=== PATIENT | male | born 1950 | race Caucasian/White ===

== ENCOUNTER 2017-10-23 14:40 | Inpatient (IN) | payer OTHER ==
[~2017-10-23] VITALS: Ht 170.2 cm; Wt 63.5 kg
--- NOTE | ~2017-10-23 | EKG ---
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 : 1950 Requested By: Mark Montoya Order Number: [id number] MD: Marek Holguin Measurements Intervals [place] Rate: 112 P: NE: QRS: 92 QRSD: 96 T: 267 QT: 322 QTc: 440 Interpretive Statements Atrial fibrillation Ventricular premature complex Right axis deviation Consider left ventricular hypertrophy Nonspecific T abnormalities, lateral leads No previous ECG available for comparison Electronically Signed On 10-23-2017 19:27:55 [employer]PER[employer]OR [employer]MENT by Marek Holguin [email or web address] <ELECTRONICALLY SIGNED> By: Marek Holguin MD 10/23/17 1927 D: [id number] 17 Marek Holguin MD /NORY
[2017-10-23 14:41] VITALS: BP 153/78
[2017-10-23] MEDS ORDERED: RISPERDAL0.5 MG PO (14:45)
[2017-10-23] MEDS ORDERED: ELIQUIS5 M1 PO (14:45)
[2017-10-23] MEDS ORDERED: POTASSIUM20 PO (14:45)
[2017-10-23] MEDS ORDERED: ASPIR 8181 MG PO (14:45)
[2017-10-23] MEDS ORDERED: FOLIC ACID1 MG PO (14:46)
[2017-10-23] MEDS ORDERED: LIPITOR40 MG PO (14:46)
[2017-10-23] MEDS ORDERED: PRINIVIL20 MG PO (14:46)
[2017-10-23] MEDS ORDERED: FUROSEMIDE 40 M40 M1 PO (14:46)
[2017-10-23 16:16] LABS: ABSOLUTE NEUTROPHILS 6.5 thou/uL (1.4-8.2); BASOPHILS 0.7 % (0.0-2.0); EOSINOPHILS 0.3 % (0.0-3.0); HEMATOCRIT 45.8 % (42.0-52.0); HEMOGLOBIN 15.1 gm/dL (14.0-18.0); LYMPHOCYTES 7.6 % (24.0-44.0); MCH 29.1 pg (26.0-34.0); MCHC 32.9 g/dL (28.0-37.0); MCV 88.5 fL (80.0-100.0); MONOCYTES 8.7 % (1.0-8.0); PLATELET COUNT 127 thou/uL (150-400); POLYS 82.7 % (36.0-66.0); RBC 5.17 mil/uL (4.50-6.00); RDW 14.4 % (10.5-14.5); WBC 7.9 thou/uL (4.0-11.0)
[2017-10-23 16:27] LABS: CREATININE 1.5 mg/dL (0.7-1.3); POTASSIUM 4.1 mmol/L (3.5-5.1); TROPONIN-I 0.05 ng/mL (<0.06)
[2017-10-23 17:35] LABS: URINE BILIRUBIN NEGATIVE (Negative); URINE BLOOD NEGATIVE (Negative); URINE CLARITY CLEAR; URINE COLOR YELLOW; URINE GLUCOSE-RANDOM* NEGATIVE (Negative); URINE KETONES NEGATIVE (Negative); URINE LEUKOCYTES-REFLEX NEGATIVE (Negative); URINE NITRITE-REFLEX NEGATIVE (Negative); URINE PROTEIN (DIPSTICK) NEGATIVE (Negative); URINE SPECIFIC GRAVITY <= 1.005 (1.005-1.035); URINE UROBILINOGEN 0.2 E.U./dl (0.2-1.0)
[2017-10-23 17:40] VITALS: BP 122/89
[2017-10-23 21:25] VITALS: BP 161/81
[2017-10-24 04:00] VITALS: BP 141/85
[2017-10-24 06:24] LABS: ALBUMIN 3.3 g/dL (3.4-5.0); CALCIUM 10.6 mg/dL (8.5-10.1); CREATININE 1.5 mg/dL (0.7-1.3); PHOSPHORUS 2.4 mg/dL (2.5-4.9); POTASSIUM 3.9 mmol/L (3.5-5.1); TROPONIN-I 0.05 ng/mL (<0.06)
[2017-10-24 07:54] VITALS: BP 143/92
[2017-10-24 16:36] VITALS: BP 93/62
[2017-10-24 20:10] VITALS: BP 93/92
[2017-10-25 04:34] VITALS: BP 121/73
[2017-10-25 05:52] LABS: ALBUMIN 2.8 g/dL (3.4-5.0); CALCIUM 10.5 mg/dL (8.5-10.1); CREATININE 1.8 mg/dL (0.7-1.3); PHOSPHORUS 2.5 mg/dL (2.5-4.9); POTASSIUM 3.9 mmol/L (3.5-5.1)
[2017-10-25 08:00] VITALS: BP 102/59
[2017-10-25] MEDS ORDERED: CARDIZEM CD180 MG PO (08:41)
[2017-10-25 15:57] VITALS: BP 112/67
[2017-10-25 20:00] VITALS: BP 81/51
[2017-10-25 21:40] VITALS: BP 11/47; BP 111/47
[2017-10-26] VITALS: BP 92/51
[2017-10-26 02:22] VITALS: BP 153/60
[2017-10-26 04:04] VITALS: BP 97/56
[2017-10-26 06:40] VITALS: BP 115/85
[2017-10-26 08:00] VITALS: BP 113/97
[2017-10-26 09:17] VITALS: BP 113/97
== END 2017-10-26 14:09 | DRG 292 ==
LOC: ER 14:40 → 4S 17:38 → EROBS 17:38 → 4S 20:55
PROVIDERS: Emergency Medicine; Hospitalist
DX: I11.0 Hypertensive heart disease with heart failure (principal); N17.9 Acute kidney failure, unspecified; I50.41 Acute combined systolic (congestive) and diastolic (congestive) heart failure; I48.91 Unspecified atrial fibrillation; F03.90 Unspecified dementia, unspecified severity, without behavioral disturbance, psychotic disturbance, mood disturbance, and anxiety; R09.02 Hypoxemia; E78.00 Pure hypercholesterolemia, unspecified; Z86.73 Personal history of transient ischemic attack (TIA), and cerebral infarction without residual deficits; Z79.899 Other long term (current) drug therapy; Z79.82 Long term (current) use of aspirin
CPT/HCPCS: 10100

== ENCOUNTER 2018-06-24 14:20 | Inpatient (IN) | payer OTHER ==
[~2018-06-24] VITALS: Ht 172.7 cm; Wt 80.5 kg
--- NOTE | ~2018-06-24 | 2DMMODE ---
[facility] [address] [place] [address] 2 D/M-MODE ECHOCARDIOGRAM Name: JESUCARYMICHELLE Room #: 207-P ADM IN M.R.#: [id number] Admission: 06/24/18 Attend Phys: Joyce Caro Discharge: Date of : 54 Date of Service: 06/26/18 1032 Report #: [id number] THIS REPORT FOR: //name// APPROVED REPORT Study performed: 06/26/2018 09:26:30 EXAM: Comprehensive 2D, Doppler, and color-flow Echocardiogram Patient Location: Bedside Room #: [facility] Status: routine BSA: 1.93 HR: 91 bpm BP: 108/50 mmHg Rhythm: Atrial Fibrillation Other Information Study Quality: Good Indications Congestive Heart Failure Atrial Fibrillation Dyspnea Hypertension/HDD Echo Enhancing Agent Indication: Rule out Shunt Agent(s) / Amount(s) Used: Agitated Saline 7 cc 2D Dimensions RVDd: 44.31 mm IVSd: 7.71 (7-11mm) LVOT Diam: 21.14 (18-24mm) LVDd: 61.11 mm PWd: 7.61 (7-11mm) Ascending Ao: 29.15 (22-36mm) LVDs: 49.44 (25-40mm) Aortic Root: 30.27 mm IVC: 22.00 mm Volumes Left Atrial Volume (Systole) Single Plane 4CH: 67.86 mL Single Plane 2CH: 58.29 mL LA ESV Index: 34.00 mL/m2 Aortic Valve AoV Peak Nikolas.: 1.32 m/s AO Peak Gr.: 8.66 mmHg LVOT Max P.01 mmHg [facility] [address] [place] [address] 2 D/M-MODE ECHOCARDIOGRAM Name: MICHELLE ALMARAZ Room #: 207-P ADM IN .R.#: [id number] Admission: 06/24/18 Attend Phys: Joyce Caro Discharge: Date of : 54 Date of Service: 06/26/18 1032 Report #: [id number] LVOT Max V: 0.87 m/s HANNAH Vmax: 2.30 cm2 Pulmonary Valve PV Peak Nikolas.: 0.79 m/s PV Peak Gr.: 2.54 mmHg Tricuspid Valve TR Peak Nikolas.: 3.04 m/s TR Peak Gr.: 36.97 mmHg PA Pressure: 47.00 mmHg Left Ventricle Left ventricle is dilated. There is global hypokinesis of the left ventricle. There is normal left ventricular wall thickness. Left ventricular ejection fraction is moderate to severely decreased. LVEF is 30-35%. This study is not technically sufficient to allow evaluation of the LV diastolic function due to atrial fibrillation. Right Ventricle Right ventricle is dilated. Right ventricular systolic function is low normal. Atria Left atrium is dilated. Interatrial septum is intact without evidence of ASD or PFO. Right atrium is dilated. Aortic Valve The aortic valve is normal in structure. Mild aortic regurgitation. Cannot exclude aortic valve vegetation. There is no aortic valvular stenosis. Mitral Valve The mitral valve is normal in structure. Mild to moderate mitral regurgitation. No evidence of mitral valve stenosis. Tricuspid Valve The tricuspid valve is normal in structure. There is mild tricuspid regurgitation. Estimated PAP 37 mmHg. There is mild pulmonary hypertension. Pulmonic Valve The pulmonary valve is normal in structure. Trace pulmonic regurgitation. [employer] [facility] [address] [place] [address] 2 D/M-MODE ECHOCARDIOGRAM Name: JESUCARYMICHELLE Room #: 207-P ADM IN M.R.#: [id number] Admission: 06/24/18 Attend Phys: Joyce Caro Discharge: Date of : 54 Date of Service: 06/26/18 1032 Report #: [id number] The aortic root is normal in size. IVC is dilated and collapses >50% with inspiration. Pericardium There is no pericardial effusion. <Conclusion> Left ventricle is dilated. LVEF is 30-35%. There is global hypokinesis of the left ventricle. Right ventricle is dilated. Left atrium is dilated. Right atrium is dilated. The aortic valve is mildly and focally thickened. Mild aortic regurgitation. The mitral valve is normal in structure. Mild to moderate mitral regurgitation. The tricuspid valve is normal in structure. There is mild tricuspid regurgitation. Estimated PAP 37 mmHg. There is mild pulmonary hypertension. The pulmonary valve is normal in structure. Trace pulmonic regurgitation. There is no pericardial effusion. <ELECTRONICALLY SIGNED> By: Mitchel Roman MD 06/26/181031 31 31 Mitchel Roman MD /INF
--- NOTE | ~2018-06-24 | HC ---
[facility] [address] [place] [address] CONSULTATION Name: MICHELLE ALMARAZ Room #: 207-P ADM IN M.R.#: [id number] Admission: 06/24/18 Attend Phys: Joyce Santana Discharge: Date of : 54 Report #: [id number] THIS REPORT FOR: //name// CC: Joyce Santana NO PCP DATE OF SERVICE: 06/25/2018 TYPE OF REPORT: Pulmonary consultation. REFERRAL PHYSICIAN: Joyce Santana M.D. REASON FOR REFERRAL: Dyspnea and pneumonia. HISTORY OF PRESENT ILLNESS: The patient is a 67-year-old white male who was brought to the Emergency Room with complaints of dyspnea. There has been admitted for pneumonia. A Pulmonary consultation was requested. The patient is a poor historian. Much of the history is obtained from the medical records. The patient resides at the [facility] at [place], [place]. He has a past history of tobacco use and atrial fibrillation, on chronic anticoagulation. According to the medical staff at the [facility], the patient has been complaining of progressive dyspnea for the past 2 days. Currently, he is resting. He is arousable but appears somnolent. PAST MEDICAL HISTORY: Notable for history of heart failure, atrial fibrillation, dementia, hypercholesterolemia, hypertension, renal failure, history of CVA and TIA with right-sided weakness. ALLERGIES: None noted. MEDICATIONS: From the shelter: Include Cardizem, Risperdal, Lasix, Prinivil, potassium supplements, Eliquis, folic acid, Lipitor, vitamin D supplements. FAMILY HISTORY: Unknown. SOCIAL HISTORY: No tobacco or alcohol use. He resides at [facility]. REVIEW OF SYSTEMS: Deferred as the patient is a poor historian. [facility] [address] [place] [address] CONSULTATION Name: MICHELLE ALMARAZ Room #: 207-P [facility] IN M.R.#: [id number] Admission: 06/24/18 Attend Phys: Joyce Santana Discharge: Date of : 54 Report #: [id number] PHYSICAL EXAMINATION: GENERAL: He is arousable but appears somnolent. VITAL SIGNS: Temperature is 97.5 degrees Fahrenheit, pulse is 100, respiratory rate is 22, blood pressure 100/51 mmHg and saturation 98%. HEENT: Normocephalic and atraumatic. NECK: Supple, without lymphadenopathy or thyromegaly. CHEST: Breath sounds are fair due to poor effort. Few scattered crackles in the bases. No wheezes. CARDIOVASCULAR: Heart sounds are distant. No obvious murmurs or gallop noted. There is no JVD. There is no carotid bruit. Pulses are 2+/4+ bilaterally. ABDOMEN: Moderately obese, soft and nontender. No organomegaly or masses felt. GENITOURINARY: Deferred. RECTAL: Deferred. EXTREMITIES: There is no edema, cyanosis or clubbing. RADIOLOGICAL DATA: Portable chest x-ray, CT chest reviewed. CT chest angiogram showed no evidence of pulmonary embolus, an indeterminate 2.5 cm left hepatic lobe mass is noted along with a 1.7 cm nodule seen in the spleen. Mild mediastinal and hilar adenopathy is noted. Scattered "tree-in-bud" seen in right upper lobe, mild diffuse hazy ground glass opacity seen in both lung adams. CT abdomen and pelvis again shows hypodense left hepatic lobe lesion, which may be atypical hemangioma, aortic ectasia containing atherosclerotic plaque and mural thrombus, tiny pleural effusion seen. Echocardiogram shows ejection fraction 30%-35%, global hypokinesis involving the left ventricle, right ventricle is dilated, both left and right atrium is dilated, moderate mitral regurgitation, pulmonary artery pressure measured 37 mmHg. LABORATORY DATA: Sodium 143, potassium 3.5, chloride 108, CO2 of 25, BUN is 42, and creatinine is 1.7. WBC 8700 and hemoglobin 13.4. Arterial blood gas revealed pH 7.40, pCO2 of 34 and pO2 97. IMPRESSION: 1. Progressive dyspnea in this 67-year-old white male. CT chest angiogram, chest x-ray as mentioned above. CT abdomen and pelvis as mentioned above. Suspect ixjlk-es-jzqylsh systolic heart failure. Pneumonia is felt to be less likely. No evidence of pulmonary embolus. 2. Abnormal CT chest showing tree-in-bud along with mild mediastinal adenopathy. This likely represents inflammatory process. 3. Liver lesions suggests possible atypical hemangioma. 4. History of atrial fibrillation. 5. Dementia. 6. Hypertension. 7. History of chronic kidney disease. RECOMMENDATIONS: Agree with treatment plans including diuresis. We will defer diagnostic bronchoscopy, requiring abdomen and chest CTs for now. Given his [address] [place] [address] CONSULTATION Name: MICHELLE ALMARAZ Room #: 207-P ADM IN M.R.#: [id number] Admission: 06/24/18 Attend Phys: Joyce Santana Discharge: Date of : 54 Report #: [id number] severe comorbid conditions including dementia, conservative management may be most appropriate in this patient. In terms of mild mediastinal adenopathy, we will recommend followup CT chest in approximately 3-4 months. Wean O2 for saturation 90%. DVT and GI prophylaxis will be recommended. Thank you for the consultation. <ELECTRONICALLY SIGNED> By: Tarik Naik MD 06/27/18 1955 1626 0037 Tarik Naik MD /nt
--- NOTE | ~2018-06-24 | HC ---
[facility] [place] [address] [place] [address] CONSULTATION Name: MICHELLE ALMARAZ Room #: 207-P ADM IN M.R.#: [id number] Admission: 06/24/18 Attend Phys: Joyce Santana Discharge: Date of : 54 Report #: [id number] THIS REPORT FOR: //name// CC: Michel Griffith DO [facility] NO PCP DATE OF SERVICE: 06/25/2018 REASON FOR CONSULTATION: Questionable abnormalities on CT chest. HISTORY OF PRESENT ILLNESS: The patient is a 67-year-old gentleman from [facility], who was brought in for shortness of air. He is a very poor historian and really just wants to be left alone. He, as best I can tell, denies any pain. He may seem to think he is a little bit short of air. Denies had abdominal pain, any weight change, any bowel changes, any urinary changes, but the history is very questionable. Here, he was found on a CAT scan to have some possible lymphadenopathy in the mediastinum, in the hilum and some questionable changes on a CT abdomen. They suggested a CT abdomen three phase, which I have ordered. History is very limited per the chart, appears to be notable for possible AFib, CHF, dementia of unknown etiology, hypercholesterolemia, hypertension, chronic kidney disease, possible stroke. MEDICATIONS: Previous to admission included potassium, Apixaban, aspirin, risperidone, furosemide, folic acid, lisinopril, atorvastatin. 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 No clear history of alcohol or tobacco use. PHYSICAL EXAMINATION: GENERAL: The patient is evaluated in room #21 of the ER obs. VITAL SIGNS: Height is 5 feet 8 inches, 172.7 cm. Weight 180 pounds or 81.7 kilograms. Blood pressure is 100/47, respirations 18, pulse 76, afebrile at 97.6. MOOD: He is slightly unpleasant in that he wants to be left alone and is a little bit gruff, but is able to answer a few questions after we started talking about the chiefs in the [employer]. His speech pattern, he is talking clearly though I do not think he is a very reliable historian. LUNGS: Seem mostly clear, though there may be some soft rhonchi. LYMPHATICS: No enlarged lymph nodes on exam in the supraclavicular or cervical region. ABDOMEN: Slightly obese, nontender. No definite masses. EXTREMITIES: Without clubbing or cyanosis. [facility] [address] [place] [address] CONSULTATION Name: MICHELLE ALMARAZ Room #: 207-P [facility] IN M.R.#: [id number] Admission: 06/24/18 Attend Phys: Joyce Santana Discharge: Date of : 54 Report #: [id number] LABORATORY DATA: Here notable for electrolytes fairly normal. BUN of 42, creatinine 1.7. Transaminases normal. Alkaline phosphatase normal. Albumin 3.1. White count 8.7, hemoglobin 13.4, MCV 89.8, platelets 132, stable from last time. Differential nonacute with few extra neutrophils and a few less lymphocytes. Imaging here is notable for a CT chest PE protocol, which describes numerous tiny peripheral nodules within the upper lobe and from the inferior aspect of the right upper lobe laterally. There are also some lymph nodes that are enlarged that are prominent in mediastinal and hilar with the largest pretracheal 1.8 cm, subcarinal 1.7, and hilar of 1.4. There are coronary vascular calcifications. The upper abdomen shows a 2.5-cm low density mass lateral aspect of the left hepatic lobe and a probable 1.7-cm low density mass in the medial aspect of the spleen. No signs of pulmonary emboli. They did suggest consideration of a 3-phase CT abdomen and also they raised the question about infectious or neoplastic process in the lungs. MEDICATIONS: At this time in the hospital currently include lisinopril 10 daily, atorvastatin 40 daily, furosemide 40 b.i.d. IV, Apixaban 5 b.i.d., insulin on a sliding scale, zolpidem p.r.n., MiraLax daily, nitroglycerin p.r.n., diltiazem had been given. ASSESSMENT AND PLAN: 1. Shortness of air with CT angio raising question of mediastinal hilar lymph nodes. We will consult Pulmonary for help to determine that this is infectious or neoplastic. 2. Questionable liver mass. We will order 3-phase CT abdomen which also include pelvis in case this is metastatic looking for primary. 3. Direction of care. Tried calling daughter, no answer. Would like direction about aggressiveness of care. The patient does not appear to want anything done. We will ask social worker clinical to contact family to help determine direction of care and aggressiveness of care. 4. Questionable dementia. Need family and put an old chart material. Note the patient was on risperidone. 5. Hypertension, lisinopril. 6. Hyperlipidemia, atorvastatin. 7. Atrial fibrillation, had received diltiazem. Rate is fairly well controlled, on anticoagulation. 8. Chronic kidney disease with creatinine of 1.7/8, stable. 9. Questionable history of transient ischemic attack. Need additional information. We will follow with you. <ELECTRONICALLY SIGNED> By: Ryne Dong MD 06/26/18 0748 0831 [id number] Ryne Dong MD /nt
--- NOTE | ~2018-06-24 | EKG ---
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 <ELECTRONICALLY SIGNED> By: Cam Ramires MD, FAC 06/24/18 1712 1421 1421 Cam Ramires MD, [facility] /EPI
[~2018-06-24 14:20] MED LIST: ASPIR 8181 MG PO; CARDIZEM CD180 MG PO; ELIQUIS5 M1 PO; FOLIC ACID1 MG PO; FUROSEMIDE 40 M40 M1 PO; LIPITOR40 MG PO; POTASSIUM20 PO; PRINIVIL20 MG PO; RISPERDAL0.5 MG PO
[2018-06-24 14:23] VITALS: BP 131/80
[2018-06-24 14:59] LABS: ABSOLUTE NEUTROPHILS 6.3 thou/uL (1.4-8.2); BASOPHILS 0.9 % (0.0-2.0); EOSINOPHILS 2.2 % (0.0-3.0); HEMOGLOBIN 13.4 gm/dL (14.0-18.0); LYMPHOCYTES 16.7 % (24.0-44.0); MCH 29.5 pg (26.0-34.0); MCHC 32.8 g/dL (28.0-37.0); MCV 89.8 fL (80.0-100.0); MONOCYTES 7.8 % (1.0-8.0); PLATELET COUNT 132 thou/uL (150-400); POLYS 72.4 % (36.0-66.0); RBC 4.56 mil/uL (4.50-6.00); RDW 15.5 % (10.5-14.5); WBC 8.7 thou/uL (4.0-11.0)
[2018-06-24] MEDS ORDERED: ELIQUIS5 MG PO (15:08)
[2018-06-24] MEDS ORDERED: VITAMIN D1000 UNI1 PO (15:09)
[2018-06-24 15:13] LABS: ANION GAP 8 mmol/L (7-16); BUN 42 mg/dL (7-18); CALCIUM 9.2 mg/dL (8.5-10.1); CHLORIDE 107 mmol/L (98-107); CO2 27 mmol/L (21-32); CREATININE 1.8 mg/dL (0.7-1.3); GLUCOSE 88 mg/dL (74-106); POTASSIUM 4.2 mmol/L (3.5-5.1); SODIUM 142 mmol/L (136-145)
[2018-06-24 15:22] LABS: SGOT 21 U/L (15-37); SGPT 40 U/L (30-65); TOTAL BILIRUBIN 0.6 mg/dL (<0.1-1.0); TOTAL PROTEIN 7.3 g/dL (6.4-8.2); TROPONIN-I <0.06 ng/mL (<0.06)
[2018-06-24 17:25] LABS: URINE BILIRUBIN NEGATIVE (Negative); URINE BLOOD NEGATIVE (Negative); URINE CLARITY CLEAR; URINE COLOR YELLOW; URINE GLUCOSE-RANDOM* NEGATIVE (Negative); URINE KETONES NEGATIVE (Negative); URINE LEUKOCYTES-REFLEX NEGATIVE (Negative); URINE NITRITE-REFLEX NEGATIVE (Negative); URINE PROTEIN (DIPSTICK) NEGATIVE (Negative); URINE UROBILINOGEN 0.2 E.U./dl (0.2-1.0)
[2018-06-24 20:58] VITALS: BP 108/72
[2018-06-24 23:57] VITALS: BP 111/71
[2018-06-25] VITALS (7 sets, daily range): BP systolic 97–121; BP diastolic 51–82
[2018-06-25 03:28] LABS: ALBUMIN 3.1 g/dL (3.4-5.0); CALCIUM 8.8 mg/dL (8.5-10.1); CREATININE 1.7 mg/dL (0.7-1.3); MAGNESIUM 1.8 mg/dL (1.8-2.4); PHOSPHORUS 3.8 mg/dL (2.5-4.9); POTASSIUM 3.5 mmol/L (3.5-5.1)
[2018-06-25 07:29] LABS: BE(vivo) -2.6 mmol/L (-2 to +3); HCO3 21.4 mmol/L (22.0-26.0); PCO2 34.9 mmHg (35.0-45.0); PO2 97.4 mmHg (80.0-100.0); pH 7.405 (7.360-7.450); sO2 97.5 % (92.0-98.0)
[2018-06-25 20:12] LABS: BE(vivo) 4.9 mmol/L (-2 to +3); PCO2 36.2 mmHg (35.0-45.0); PO2 73.9 mmHg (80.0-100.0); pH 7.506 (7.360-7.450); sO2 96.1 % (92.0-98.0)
[2018-06-26 03:47] LABS: CALCIUM 8.9 mg/dL (8.5-10.1); CREATININE 1.9 mg/dL (0.7-1.3); POTASSIUM 3.6 mmol/L (3.5-5.1)
[2018-06-26 04:45] LABS: HEMATOCRIT 39.7 % (42.0-52.0); HEMOGLOBIN 13.2 gm/dL (14.0-18.0); MCH 29.8 pg (26.0-34.0); MCHC 33.4 g/dL (28.0-37.0); MCV 89.2 fL (80.0-100.0); RBC 4.45 mil/uL (4.50-6.00); RDW 15.2 % (10.5-14.5); WBC 8.4 thou/uL (4.0-11.0)
[2018-06-26 05:46] VITALS: BP 100/68
[2018-06-26 07:57] VITALS: BP 108/50
[2018-06-26 10:24] VITALS: BP 92/50
[2018-06-26 12:18] VITALS: BP 109/72
[2018-06-26 14:24] VITALS: BP 112/57
[2018-06-26 20:02] VITALS: BP 94/51
[2018-06-27 04:50] VITALS: BP 110/69
[2018-06-27 07:38] VITALS: BP 97/47
[2018-06-27 10:40] VITALS: BP 105/58
[2018-06-27 15:00] VITALS: BP 98/56
[2018-06-27 19:23] VITALS: BP 119/58
[2018-06-28 04:06] VITALS: BP 94/62
[2018-06-28 08:15] VITALS: BP 103/60
[2018-06-28] MEDS ORDERED: METOPROLOL SUCC25 M1 PO (08:54)
[2018-06-28] MEDS ORDERED: BENAZEPRIL HCL5 MG PO (08:55)
[2018-06-28] MEDS ORDERED: PREDNISONE 10 M10 MG PO (08:56)
[2018-06-28 10:46] VITALS: BP 103/60
== END 2018-06-28 15:21 | DRG 682 ==
LOC: ER 14:20 → EROBS 16:43 → 2N 16:43 → EROBS 06-25 00:52 → 2N 06-25 09:36
PROVIDERS: Hospitalist; Internal Medicine Pulmonary Disease; Nurse Practitioner Family
DX: N17.0 Acute kidney failure with tubular necrosis (principal); I50.23 Acute on chronic systolic (congestive) heart failure; J96.01 Acute respiratory failure with hypoxia; A31.9 Mycobacterial infection, unspecified; I42.9 Cardiomyopathy, unspecified; I13.0 Hypertensive heart and chronic kidney disease with heart failure and stage 1 through stage 4 chronic kidney disease, or unspecified chronic kidney disease; I48.91 Unspecified atrial fibrillation; F03.90 Unspecified dementia, unspecified severity, without behavioral disturbance, psychotic disturbance, mood disturbance, and anxiety; E78.00 Pure hypercholesterolemia, unspecified; E78.5 Hyperlipidemia, unspecified; N18.9 Chronic kidney disease, unspecified; R59.0 Localized enlarged lymph nodes; R16.1 Splenomegaly, not elsewhere classified; K76.9 Liver disease, unspecified; E55.9 Vitamin D deficiency, unspecified; D18.00 Hemangioma unspecified site; J44.9 Chronic obstructive pulmonary disease, unspecified; Z79.82 Long term (current) use of aspirin; Z79.899 Other long term (current) drug therapy; Z28.21 Immunization not carried out because of patient refusal; Z86.73 Personal history of transient ischemic attack (TIA), and cerebral infarction without residual deficits; Z79.01 Long term (current) use of anticoagulants
CPT/HCPCS: 10081

== ENCOUNTER 2018-10-04 17:20 | Inpatient (IN) | payer OTHER ==
[~2018-10-04] VITALS: Ht 172.7 cm; Wt 81.3 kg
[2018-10-04 17:20] VITALS: BP 115/64
[~2018-10-04 17:20] MED LIST changes: +BENAZEPRIL HCL5 MG PO; +ELIQUIS5 MG PO; +METOPROLOL SUCC25 M1 PO; +PREDNISONE 10 M10 MG PO; +VITAMIN D1000 UNI1 PO
[2018-10-04 18:15] LABS: HEMATOCRIT 37.2 % (42.0-52.0); HEMOGLOBIN 12.4 gm/dL (14.0-18.0)
[2018-10-04 18:18] LABS: MCHC 33.5 g/dL (28.0-37.0); MCV 86.8 fL (80.0-100.0); PLATELET COUNT 158 thou/uL (150-400); RBC 4.28 mil/uL (4.50-6.00); RDW 15.8 % (10.5-14.5); WBC 9.1 thou/uL (4.0-11.0)
[2018-10-04 18:26] LABS: ANION GAP 10 mmol/L (7-16); BUN 32 mg/dL (7-18); CALCIUM 8.9 mg/dL (8.5-10.1); CHLORIDE 105 mmol/L (98-107); CO2 26 mmol/L (21-32); CREATININE 1.6 mg/dL (0.7-1.3); GLUCOSE 109 mg/dL (74-106); POTASSIUM 3.4 mmol/L (3.5-5.1); SODIUM 141 mmol/L (136-145)
[2018-10-04 18:29] LABS: APTT 29.4 Seconds (24.5-32.8); INR 1.5; PROTIME 15.2 Seconds (9.3-11.4)
[2018-10-04 18:35] LABS: ALBUMIN 2.9 g/dL (3.4-5.0); MAGNESIUM 2.1 mg/dL (1.8-2.4); SGOT 26 U/L (15-37); SGPT 28 U/L (30-65); TOTAL BILIRUBIN 0.6 mg/dL (<0.1-1.0); TOTAL PROTEIN 6.8 g/dL (6.4-8.2); TROPONIN-I <0.06 ng/mL (<0.06)
[2018-10-04 18:48] LABS: ABSOLUTE NEUTROPHILS 5.8 thou/uL (1.4-8.2)
[2018-10-04 18:49] LABS: ANISOCYTOSIS SLIGHT; ATYPICAL LYMPHS 6 %; PLATELET ESTIMATE NORMAL
[2018-10-04] MEDS ORDERED: APAP650 PO (18:52)
[2018-10-04] MEDS ORDERED: UNICOMPLEX M TA1 TA1 PO (18:53)
[2018-10-04] MEDS ORDERED: ACIDOPHILUS1 EAC4 PO ×2 (18:53→22:48)
[2018-10-04] MEDS ORDERED: LISINOPRIL2.5 MG PO (18:53)
[2018-10-04] MEDS ORDERED: PRILOSEC 20 MG20 MG PO (18:54)
[2018-10-04] MEDS ORDERED: FLOMAX0.4 MG PO (18:54)
[2018-10-04] MEDS ORDERED: MIRALAX17 GM PO (18:54)
[2018-10-04] MEDS ORDERED: PROAIR HFA8.5 GM INH (18:55)
[2018-10-04] MEDS ORDERED: ASPIR 8181 MG PO (18:56)
[2018-10-04 21:28] VITALS: BP 139/85
[2018-10-04 21:30] VITALS: BP 139/85
[2018-10-04 21:48] VITALS: BP 122/78
[2018-10-04] MEDS ORDERED: TYLENOL325 MG PO (22:39)
[2018-10-04] MEDS ORDERED: TOPROL XL25 MG PO (22:45)
[2018-10-04] MEDS ORDERED: ERGOCALCIF50000 UNIT PO (22:49)
[2018-10-04] MEDS ORDERED: CELEXA10 MG PO (22:50)
[2018-10-04] MEDS ORDERED: SYMBICORT160 MCG/4. INH (22:51)
[2018-10-05 05:53] VITALS: BP 131/88
--- NOTE | 2018-10-05 06:02 | NUR ---
PT ARRIVED FROM ER VIA CART. PLACED IN ROOM 360. ADMISSION ASSESSMENTS COMPLETED. PT ALERT, ORIENTED TO NAME AND "HOSPITAL." IS NOT AWARE OF THE DATE, MONTH, YEAR OR TIME OF DAY THOUGH HE WAS ABLE TO SAY IT WAS NIGHT TIME. STATES HE HAS FOR CHILDREN BUT WAS UNABLE TO STATE THEIR NAMES. POOR HISTORIAN IN REGARDS TO HIS HEALTH HISTORY AND WAS UNABLE TO STATE WHY HE WAS BROUGHT TO THE HOSPITAL. WAS ABLE TO SAY THAT HE LIVES IN A "OLD FOLKS HOME." OCCASIONALLY USING THE URINAL TO VOID AND OCCASIONALLY INCONTINENT. DENIES ANY ALLERGIES. STATES HE IS SUPPOSED TO WEAR GLASSES TO READ AND FOR DISTANCE BUT "I'VE NEVER REALLY WORN THEM."
[2018-10-05 06:11] LABS: CALCIUM 8.9 mg/dL (8.5-10.1); CREATININE 1.9 mg/dL (0.7-1.3); MAGNESIUM 2.1 mg/dL (1.8-2.4); POTASSIUM 3.9 mmol/L (3.5-5.1)
[2018-10-05 08:22] VITALS: BP 138/85
--- NOTE | 2018-10-05 10:44 | EKG ---
[address] [address] ELECTROCARDIOGRAM REPORT Name: MICHELLE ALMARAZ Room #: 360-P ADM IN M.R.#: [id number] Admission: 10/04/18 Attend Phys: Kevin Barrow MD Discharge: Date of : 54 Report #: [id number] THIS REPORT FOR: //name// [facility] ED Test Date: 2018-10-04 Test Time: 17:46:14 Pat Name: MICHELLE ALMARAZ Department: Room: 360 Gender: M Side Boss: GINA : 1950 Requested By: Inocencio Melo Order Number: [id number] MD: Kel Vo Measurements Intervals [place] Rate: 105 P: [place]: QRS: 87 QRSD: 106 T: 262 QT: 390 QTc: 516 Interpretive Statements Atrial fibrillation Ventricular premature complex Borderline right axis deviation Nonspecific ST segment abnormality Prolonged QT interval Compared to ECG 06/24/2018 14:21:28 No significant changes Electronically Signed On 10-05-2018 10:44:33 DIRECTOR [employer] by Kel Vo [email or web address] <ELECTRONICALLY SIGNED> By: Kel Vo MD 10/05/18 1044 1746 174 Kel Vo MD /NORY
[2018-10-05 11:57] VITALS: BP 94/73
[2018-10-05 14:25] VITALS: BP 131/77
[2018-10-05 15:36] VITALS: BP 153/80
--- NOTE | 2018-10-05 19:24 | NUR ---
ASSUMED PATIENT CARE AT 0700. A/O X4. SOB WITH EXERTION. DENIES CHEST PAIN. INCONTIUNE URINE AND BOWEL. AFIB ON MONITOR. WILL KEEP MONITOR.
[2018-10-05 20:05] VITALS: BP 112/54
[2018-10-06 04:06] VITALS: BP 92/58
[2018-10-06 04:20] VITALS: BP 103/62
[2018-10-06 05:32] LABS: ABSOLUTE NEUTROPHILS 9.5 thou/uL (1.4-8.2); BASOPHILS 0.9 % (0.0-2.0); HEMATOCRIT 39.7 % (42.0-52.0); HEMOGLOBIN 12.7 gm/dL (14.0-18.0); LYMPHOCYTES 15.6 % (24.0-44.0); MCH 27.3 pg (26.0-34.0); MCHC 31.9 g/dL (28.0-37.0); MCV 85.6 fL (80.0-100.0); MONOCYTES 8.3 % (1.0-8.0); PLATELET COUNT 198 thou/uL (150-400); POLYS 74.2 % (36.0-66.0); RBC 4.63 mil/uL (4.50-6.00); RDW 16.1 % (10.5-14.5); WBC 12.8 thou/uL (4.0-11.0)
[2018-10-06 05:40] LABS: CALCIUM 9.5 mg/dL (8.5-10.1); CREATININE 1.9 mg/dL (0.7-1.3)
--- NOTE | 2018-10-06 07:08 | NUR ---
PT C/O CHEST AND ABD PAIN, INCREASED NAUSEA AND SHORTNESS OF AIR. SEE PUTAWAY DRIVER FLOW SHEET.
--- NOTE | 2018-10-06 07:11 | NUR ---
PLEASE SEE RAPID RESPONSE FLOWSHEET FOR DETAILS REGARDING PT C/O "I CAN'T BREATHE."
[2018-10-06 08:17] VITALS: BP 124/54
--- NOTE | 2018-10-06 08:28 | HC ---
[facility] [address] [place] [address] CONSULTATION Name: MICHELLE ALMARAZ Room #: 360-P [facility] IN .R.#: [id number] Admission: 10/04/18 Attend Phys: Kevin Barrow MD Discharge: Date of : 54 Report #: [id number] THIS REPORT FOR: //name// CC: Kevin Griffith DATE OF SERVICE: 10/05/2018 INDICATION: Tachycardia. HISTORY OF PRESENT ILLNESS: This is a 68-year-old gentleman with a history of permanent atrial fibrillation, cardiomyopathy, hypertension, CVA, chronic kidney disease, dementia, who was admitted for increasing dyspnea. The patient is a questionable historian. Information is obtained from medical records and nursing staff. Apparently, he reported having increasing dyspnea with lying supine, having trouble sleeping. He offers no complaints of angina, palpitations or lightheadedness. He received Lasix in the ER, appears to be mildly improved. His AFib rates are averaging around 100 beats per minute, has episodes where it increases to 150 beats per minute. PAST MEDICAL HISTORY: Echo from 05/2018 reveals EF in the 30-35% range, mild to moderate MR. AFib managed with beta abad therapy and Eliquis. History of dementia. History of COPD, on chronic oxygen therapy. Generalized weakness and debility. Chronic kidney disease. MEDICATIONS: At his longterm include Lasix 40 mg daily, Toprol 25 mg daily, lisinopril, Eliquis 5 mg b.i.d., omeprazole, and aspirin. SOCIAL HISTORY: Former smoker. FAMILY HISTORY: Unobtainable. REVIEW OF SYSTEMS: Unobtainable. PHYSICAL EXAMINATION: VITAL SIGNS: Blood pressure 130/70, heart rate is 136 beats per minute. GENERAL APPEARANCE: This is an elderly appearing male, in no acute distress. HEENT: Normocephalic, atraumatic. Oral mucosa moist. NECK: Supple. LUNGS: Slightly diminished breath sounds at the bases. CARDIAC: Tachycardic, S1 and S2 positive. ABDOMEN: Soft, nontender. EXTREMITIES: No cyanosis, no edema. ECG reveals atrial fibrillation, poor R-wave progression, nonspecific T-wave abnormality. [facility] [address] [place] [address] CONSULTATION Name: MICHELLE ALMARAZ Room #: 360-[facility].#: [id number] Admission: 10/04/18 Attend Phys: Kevin Barrow MD Discharge: Date of : 54 Report #: [id number] LABORATORY VALUES: Sodium is 142, creatinine is 1.9. White count is 9.1, hemoglobin is 12.4. ASSESSMENT AND PLAN: 1. Respiratory failure, acute on chronic combined heart failure, mildly improved with IV Lasix. Would continue with the present dose of Lasix at 40 mg b.i.d. Strict I's and O's. Monitor creatinine level. 2. Atrial fibrillation with a rapid ventricular rate, secondary to #1. He is on low dose metoprolol and started on Cardizem with minimal benefit. We will discontinue Cardizem in view of underlying cardiomyopathy. Would like to control the heart rate with just a beta abad. Change metoprolol to atenolol for better rate control. Continue with Eliquis. 3. Cardiomyopathy, continue with diuresis. Continue with lisinopril. Unable to add Coreg in view of low blood pressure. In addition, priority should be given to controlling the atrial fibrillation rate with atenolol. 4. Chronic kidney disease, creatinine 1.9. Continue to follow. <ELECTRONICALLY SIGNED> By: Kel Vo MD 10/06/18 0828 1459 2139 Kel Vo MD /nt
--- NOTE | 2018-10-06 09:54 | NUR ---
PT MAKING POOR PROGRESS TOWARDS GOALS. PT OCCASIONALY SHORT AND WILL START TAKING DEEP BREATHS WITHOUT ANY APPARENT PRECIPITATING EVENT. THIS RN HAS OBSERVED THIS. PT HAD MULTIPLE SMALL LOOSE STOOLS OVERNIGHT. PT HAS BEEN INCONTINENT OF b&b EACH TIME. AT 0400 PT HAD SMALL LOOSE STOOL AND WAS ATTEMPTING TO GET OUT OF BED. STAFF ASSISTED PT BACK UP INTO THE BED. PT BECAME LIMP AND STAFF STATED HE LOOKED ASHEN. IMMEDIATE BP TAKEN WITH SYSTOLIC 62. PT PLACED PLACED SUPINE. RESPONDED TO STERNAL RUB AND BEGAN TO WAKE UP. JUST 3-4 MINUTES LATER AND PT SBP 90'S. HR REMAINED IN THE 70'S THROUGH THAT TIME PER [employer], IN AFIB. TWENTY MINUTES LATER PT HAD BP 103/62 AND HR 84. PT WAS AWAKE, AND ALERT TO NAME AND PLACE WAS HIS PRIOR MENTATION/ORIENTATION.
--- NOTE | 2018-10-06 11:01 | EKG ---
[place] [address] [facility] [place] [address] ELECTROCARDIOGRAM REPORT Name: MICHELLE ALMARAZ Room #: 360-P ADM IN M.R.#: [id number] Admission: 10/04/18 Attend Phys: Kevin Barrow MD Discharge: Date of : 54 Report #: [id number] THIS REPORT FOR: //name// [facility] Test Date: 2018-10-06 Test Time: 06:41:37 Pat Name: MICHELLE ALMARAZ Department: Room: 360 P Gender: M Platform Power Technician: dayanara : 1950 Requested By: Giulia Díaz Order Number: [id number] MD: Kel Vo Measurements Intervals [place] Rate: 86 P: IN: QRS: 104 QRSD: 100 T: 206 QT: 434 QTc: 519 Interpretive Statements Atrial fibrillation Left posterior fascicular block Abnormal R-wave progression, late transition Abnormal T, consider ischemia, lateral leads Compared to ECG 10/04/2018 17:46:14 Left posterior fascicular block now present T-wave abnormality now present Possible ischemia now present Ventricular premature complex(es) no longer present ST (T wave) deviation no longer present Electronically Signed On 10-06-2018 11:00:58 HI LO DRIVER by Kel Vo [email or web address] <ELECTRONICALLY SIGNED> By: eKl Vo MD 10/06/18 1100 0641 Kel Vo MD /EPI
[2018-10-06 16:05] VITALS: BP 107/78
--- NOTE | 2018-10-06 18:45 | NUR ---
PT IMPULSIVE..QUICK TO ANGER...FALL PREC IN PLACE...STAFF WENT TO REPOSITION PATIENT AND HE BEGAN TO HOLLER AND CURSE AT STAFF...WILL MONITOR...
[2018-10-06 19:25] VITALS: BP 124/89
[2018-10-07 03:30] VITALS: BP 132/82
[2018-10-07 06:11] LABS: ABSOLUTE NEUTROPHILS 10.2 thou/uL (1.4-8.2); BASOPHILS 0.8 % (0.0-2.0); HEMOGLOBIN 13.2 gm/dL (14.0-18.0); LYMPHOCYTES 15.1 % (24.0-44.0); MCH 28.1 pg (26.0-34.0); MCHC 32.2 g/dL (28.0-37.0); MCV 87.4 fL (80.0-100.0); MONOCYTES 10.1 % (1.0-8.0); PLATELET COUNT 175 thou/uL (150-400); RBC 4.69 mil/uL (4.50-6.00); RDW 16.2 % (10.5-14.5); WBC 14.1 thou/uL (4.0-11.0)
[2018-10-07 06:25] LABS: CALCIUM 9.3 mg/dL (8.5-10.1); POTASSIUM 4.4 mmol/L (3.5-5.1)
--- NOTE | 2018-10-07 06:49 | NUR ---
ASSUMED CARE OF PT AT 1900. PT SLEPT MOST OF THE NOC, REQUESTED TO BE LEFT ALONE, TRIED TO ACCOMODATE MUCH POSSIBLE. HR ELEVATED FROM 120-150'S. 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 HR DECREASED TO 90s. NO ACUTE DISTRESS. ASSMT'S DOCUMENTED. PROGRESSING TOWARDS POC GOALS.
[2018-10-07 08:47] VITALS: BP 102/49
--- NOTE | 2018-10-07 11:48 | NUR ---
assessment: CM REVIEWED CHART AND MET WITH PATIENT AT THE BEDSIDE. PT WAS ADMITTED WITH CHF EXACERBATION. 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 CM NOTIFIED PIERCE IN ADMISSION FROM [facility] AND SHE STATES THEY CAN ACCEPT PATIENT BACK ONCE HE IS MEDICALLY STABLE. CM REACHED OUT TO YUNI VILLA PUBLIC INSURANCE PROCESSOR AT [phone] AND LEFT VM OF PATIENTS ADMISSION (OFFICE IS CURRENTLY CLOSED DUE TO FLODDING). CM CONTACTED VELASQUEZ PALACIOS AT THE PUBLICE ADMINISTRATORS OFFICE WHO STATES HE WILL PASS IT ON TO YUNI. PLANS ARE FOR PATIENT TO LIKELY RETURN TO [facility] IN 1/2 DAYS. CM FAXED UPDATED CLINICAL TO PIERCE AT [facility]. PT REPORTS HE USES A WHEELCHAIR ALL OF THE TIME AND ALSO STATES HE IS USUALLY ON 2L OXYGEN. CM WILL CONTINUE TO FOLLOW TO ASSIST NEEDED.
[2018-10-07 16:46] VITALS: BP 119/64
[2018-10-07 19:30] VITALS: BP 104/62
--- NOTE | 2018-10-07 19:57 | NUR ---
PT IS A VERY VERY HIGH FALL RISK..HE IS IMPULSIVE WITH BOUTS OF RAGE AT TIMES..HE WILL WIGGLE TO END OF BED AND NEEDS FREQ REPOSITIONING...
--- NOTE | 2018-10-07 21:03 | NUR ---
2004 PATIENT CONFUSED AND SLIGHTLYT AGITATED. 2029 FOUND PATIENT TRYING GET OUT BED W/O ASSISTANCE, PT RESTLESS AND ANXIOUS. TORRES CATHETER OUT, BLEEDING NOTED FROM PENIS AND IV SITE PULLED AND O2 OFF. 2099 SPOKE WITH DIANA AUGUSTE AND ORDER RECEIVED.
[2018-10-07 23:19] VITALS: BP 115/77
[2018-10-08 01:36] VITALS: BP 129/85
--- NOTE | 2018-10-08 01:41 | NUR ---
PT'S HR HAS BEEN 120'S TO 140'S, A-FIB. PATIENT C/O SOA WHEN AWAKE. DIANA AUGUSTE NOTIFIED.
[2018-10-08 01:54] VITALS: BP 115/76
[2018-10-08 04:35] VITALS: BP 114/63
[2018-10-08 06:17] LABS: HEMATOCRIT 38.7 % (42.0-52.0); HEMOGLOBIN 12.6 gm/dL (14.0-18.0); MCH 28.5 pg (26.0-34.0); MCHC 32.6 g/dL (28.0-37.0); MCV 87.4 fL (80.0-100.0); RBC 4.43 mil/uL (4.50-6.00); RDW 16.5 % (10.5-14.5); WBC 10.7 thou/uL (4.0-11.0)
[2018-10-08 06:39] LABS: CALCIUM 9.4 mg/dL (8.5-10.1); CREATININE 1.9 mg/dL (0.7-1.3)
[2018-10-08 08:02] VITALS: BP 111/85
--- NOTE | 2018-10-08 08:27 | EKG ---
[address] [place] [address] ELECTROCARDIOGRAM REPORT Name: MICHELLE ALMARAZ Room #: 360-P ADM IN M.R.#: [id number] Admission: 10/04/18 Attend Phys: Santi Laguna MD Discharge: Date of : 54 Report #: [id number] THIS REPORT FOR: //name// [facility] Test Date: 2018-10-08 Test Time: 01:23:55 Pat Name: MICHELLE ALMARAZ Department: Room: 360 P Gender: M Agent Broker: .Catina.. : 1950 Requested By: Giulia Díaz Order Number: [id number] MD: Cam Ramires Measurements Intervals [place] Rate: 134 P: PA: QRS: 105 QRSD: 100 T: -74 QT: 314 QTc: 469 Interpretive Statements Atrial fibrillation Rightward axis Nonspecific ST and T wave abnormality Compared to ECG 10/06/2018 06:41:37 No significant change was found Electronically Signed On 10-08-2018 8:27:33 APPLIANCE SALES ASSOCIATE by Cam Ramires [email or web address] <ELECTRONICALLY SIGNED> By: Cam Ramires MD, [facility] 10/08/18 0827 2 012 Cam Ramires MD, [facility] /EPI
--- NOTE | 2018-10-08 13:21 | NUR ---
ON-GOING ASSESSMENT: CM REVIEWED CHART AND SPOKE WITH ATTENDING. PT IS SLOWLY PROGRESSING TOWARDS GOALS. PATIENT MAY LIKELY DISCHARGE IN 1-2DAYS. CM NOTIFIED LIASON AT [facility] WHERE PATIENT WILL RETURN. CM ALSO NOTIFIED THE PUBLIC MILLER [employer] WHO CONSENTS FOR PATIENT TO RETURN TO [facility] WHEN STABLE. CM WILL CONTINUE TO FOLLOW TO ASSIST NEEDED.
[2018-10-08 16:39] VITALS: BP 102/49
--- NOTE | 2018-10-08 18:16 | NUR ---
Assumed care of pt at 0700. pt confused, emotionally labile. at times yelling for no particular reason. incontinent of blood tinged urine from pulling out vanegas cath overnight. good appetite. multiple attempts to get out of bed without calling. all fall precautions in place. afib on telemetry. pt progressing toward poc goals.
[2018-10-08 19:40] VITALS: BP 122/78
[2018-10-09 03:55] VITALS: BP 104/71
--- NOTE | 2018-10-09 04:46 | NUR ---
c diff isolation maintained, receiving IV Flagyl and PO Vanc. incontinent loose stool. labile mood, will be very pleasant and wanting staff to stay and talk, watch TV but then become highly agitated, yell out especially when he gets frustrated. up to side of bed a few times with assist.
[2018-10-09 05:39] LABS: CALCIUM 9.1 mg/dL (8.5-10.1); CREATININE 1.7 mg/dL (0.7-1.3); POTASSIUM 3.7 mmol/L (3.5-5.1)
--- NOTE | 2018-10-09 10:41 | NUR ---
PT A&OX2, CONFUSED AND HOSTILE WITH STAFF AND EVIDENCED BY THREATENING STATEMENTS. REFUSED AM MEDS THEN WHEN NURSE RETURNED TO THE ROOM MED WERE GONE AND PT STAED HE TOOK THEM. IV INTACT IN L FA. PLANS ARE TO POSS. DC BACK TO [facility] TODAY.
[2018-10-09] MEDS ORDERED: SEROQUEL 25 MG25 M1 PO (12:26)
[2018-10-09] MEDS ORDERED: Hydrocerin Cream 4 O TOP (12:26)
[2018-10-09] MEDS ORDERED: FIRVANQ50 MG/1 ML PO (12:26)
[2018-10-09] MEDS ORDERED: DEMADEX 2020 MG/1 TA PO (12:26)
[2018-10-09 12:57] VITALS: BP 84/48
--- NOTE | 2018-10-09 14:46 | NUR ---
ON-GOING ASSESSMENT: CM REVIEWED CHART AND MET WITH PATIENT AT THE BEDSIDE. PT IS SCHEDULED TO DISCHARGE TODAY BACK [place] [facility]. CM SPOKE WITH LIASON AT [facility] WHO ARRANGED TRANSPORTATION FOR 1600. CM NOTIFIED PATIENT AND BEDSIDE RN. CM NOTIFIED BEDSIDE RN OF THE NUMBER FOR REPORT [phone]. CM FAXED DISCHARGE PAPERWORK TO [facility] AND CONFIRMED THEY RECEIVED IT. CHART COPY WAS ORDERED AND COMPLETED BY RESP THER. RAEANN CONTACTED THE PUBLIC FRAMER WHO GIVES CONSENT FOR PATIENT TO GO BACK TO [facility] TODAY. CASE COMPLETED.
== END 2018-10-09 19:17 | DRG 871 ==
LOC: ER 17:20 → 3W 19:42 → EROBS 19:42 → 3W 22:01
PROVIDERS: Emergency Medicine; Internal Medicine Cardiovascular Disease; Nurse Practitioner Acute Care; Nurse Practitioner Gerontology; ADMIT Hospitalist
DX: A41.9 Sepsis, unspecified organism (principal); I50.43 Acute on chronic combined systolic (congestive) and diastolic (congestive) heart failure; A04.72 Enterocolitis due to Clostridium difficile, not specified as recurrent; I13.0 Hypertensive heart and chronic kidney disease with heart failure and stage 1 through stage 4 chronic kidney disease, or unspecified chronic kidney disease; N17.9 Acute kidney failure, unspecified; F03.91 Unspecified dementia, unspecified severity, with behavioral disturbance; J96.11 Chronic respiratory failure with hypoxia; I47.2 Ventricular tachycardia; I42.9 Cardiomyopathy, unspecified; M62.84 Sarcopenia; F20.9 Schizophrenia, unspecified; E87.6 Hypokalemia; R41.0 Disorientation, unspecified; K21.9 Gastro-esophageal reflux disease without esophagitis; D18.00 Hemangioma unspecified site; I48.2 Chronic atrial fibrillation; N18.3 Chronic kidney disease, stage 3 (moderate); J44.9 Chronic obstructive pulmonary disease, unspecified; Z79.1 Long term (current) use of non-steroidal anti-inflammatories (NSAID); Z86.73 Personal history of transient ischemic attack (TIA), and cerebral infarction without residual deficits; Z79.899 Other long term (current) drug therapy; Z87.891 Personal history of nicotine dependence; Z79.51 Long term (current) use of inhaled steroids; Z79.82 Long term (current) use of aspirin; Z28.21 Immunization not carried out because of patient refusal
CPT/HCPCS: 10879